=== PATIENT | female | born 1950 | race Caucasian/White ===

== ENCOUNTER 2017-02-18 10:12 | Outpatient (CLI) | payer MEDICAID, OTHER | END 2017-02-18 10:13 | disposition home or self-care (01) | DX: K76.0 Fatty (change of) liver, not elsewhere classified (principal); I10 Essential (primary) hypertension; E11.9 Type 2 diabetes mellitus without complications ==

== ENCOUNTER 2017-12-12 08:00 | Outpatient (CLI) | payer SELFPAY ==
[2017-12-12 19:23] LABS: HB2 TOTAL 15.3 g/dL; HEMOGLOBIN A1C 1.14 g/dL
[2017-12-12 19:29] LABS: ALBUMIN 3.8 g/dL (3.2-5.5); ALBUMIN/GLOBULIN RATIO 1.2 (1.0-2.2); BILIRUBIN,TOTAL 0.6 mg/dL (0.2-1.0); CREATININE 0.7 mg/dL (0.4-1.0)
== END 2017-12-12 08:01 | disposition home or self-care (01) ==
LOC: LAB.WCP 08:00
PROVIDERS: ATTEND Family Medicine
DX: E11.40 Type 2 diabetes mellitus with diabetic neuropathy, unspecified (principal); I10 Essential (primary) hypertension; M17.0 Bilateral primary osteoarthritis of knee
CPT/HCPCS: 36415; 80053; 83036

== ENCOUNTER 2018-03-18 08:00 | Outpatient (CLI) | payer MEDICARE ==
[2018-03-18 19:27] LABS: ALBUMIN 3.9 g/dL (3.2-5.5); ALBUMIN/GLOBULIN RATIO 1.2 (1.0-2.2); BILIRUBIN,TOTAL 0.7 mg/dL (0.2-1.0); CALCIUM 9.1 mg/dL (8.5-10.3); CREATININE 0.8 mg/dL (0.4-1.0); TOTAL PROTEIN 7.1 g/dL (6.7-8.2)
[2018-03-18 20:02] LABS: HB2 TOTAL 15.2 g/dL; HEMOGLOBIN A1C 0.89 g/dL; HEMOGLOBIN A1C % 7.5 % (4.6-6.2)
== END 2018-03-18 08:01 | disposition home or self-care (01) ==
LOC: LAB.WCP 08:00
PROVIDERS: ATTEND Family Medicine
DX: E11.9 Type 2 diabetes mellitus without complications (principal)
CPT/HCPCS: 36415; 80053; 83036

== ENCOUNTER → 2018-08-13 | Outpatient (CLI) | payer MEDICARE ==
[2018-08-13 19:18] LABS: BASOPHILS % (AUTO) 0.8 %; EOSINOPHILS # (AUTO) 0.1 10^3/uL (0.0-0.7); HGB - HEMOGLOBIN 13.9 g/dL (12.0-16.0); LYMPHOCYTES # (AUTO) 1.8 10^3/uL (1.5-3.5); LYMPHOCYTES % (AUTO) 28.1 %; MEAN CORPUSCULAR HEMOGLOBIN 31.3 pg (27.0-31.0); MEAN CORPUSCULAR VOLUME 92.2 fL (81.0-99.0); MEAN PLATELET VOLUME 8.6 fL (7.9-10.8); MONOCYTES # (AUTO) 0.3 10^3/uL (0.0-1.0); MONOCYTES % (AUTO) 4.5 %; NEUTROPHILS # (AUTO) 4.2 10^3/uL (1.5-6.6); NEUTROPHILS % (AUTO) 64.6 %; PLT - PLATELET COUNT 291 10^3/uL (130-450); RED BLOOD COUNT 4.42 10^6/uL (4.20-5.40); RED CELL DISTRIBUTION WIDTH 13.1 % (12.0-15.0); WHITE BLOOD COUNT 6.5 x10^3/uL (4.8-10.8)
[2018-08-13 19:25] LABS: ALBUMIN 3.7 g/dL (3.2-5.5); ALBUMIN/GLOBULIN RATIO 1.1 (1.0-2.2); BILIRUBIN,TOTAL 0.6 mg/dL (0.2-1.0); CALCIUM 8.6 mg/dL (8.5-10.3); CREATININE 0.7 mg/dL (0.4-1.0); TOTAL PROTEIN 7.2 g/dL (6.7-8.2)
[2018-08-13 19:30] LABS: PT - PROTHROMBIN TIME 11.2 secs (9.9-12.6)
== END ==
LOC: LAB.WCP 14:42
PROVIDERS: ATTEND Student in an Organized Health Care Education/Training Program
DX: K76.0 Fatty (change of) liver, not elsewhere classified (principal)
CPT/HCPCS: 36415; 80053; 85025; 85610; 85730

== ENCOUNTER 2018-09-13 09:26 | Outpatient (CLI) | payer MEDICARE ==
--- NOTE | 2018-09-13 20:36 | Ultrasound Report ---
Reason: ELEVATED LIVER ENZYMES-INTERMITTENT, FATTY LIVER D Procedure Date: 09/13/2018 Accession Number: [id number] / [id number] Procedure: US - Abdomen Limited CPT Code: FULL RESULT: EXAM: ABDOMEN ULTRASOUND LIMITED, RIGHT UPPER QUADRANT EXAM DATE: 09/13/2018 09:31 AM. CLINICAL HISTORY: Elevated liver enzymes-intermittent, fatty liver. COMPARISON: None. TECHNIQUE: Real-time scanning was performed with static images obtained. FINDINGS: Liver: The liver is diffusely echogenic in appearance suggesting fibrofatty infiltration. No suspicious lesions or masses are identified. The liver is mildly enlarged measuring 18.9 cm. Main portal vein flow: Hepatopetal. Gallbladder: Surgically absent. Biliary System: CBD measures 7 mm. No intrahepatic or extrahepatic ductal dilatation. Other: None. IMPRESSION: 1. Mild hepatomegaly and fatty change of the liver is seen. 2. Status post cholecystectomy. No biliary dilation. RADIA
== END 2018-09-13 09:27 | disposition home or self-care (01) ==
LOC: DI 09:26
PROVIDERS: ATTEND Physician Assistant
DX: K76.0 Fatty (change of) liver, not elsewhere classified (principal); R74.8 Abnormal levels of other serum enzymes; Z90.49 Acquired absence of other specified parts of digestive tract
CPT/HCPCS: 76705

== ENCOUNTER 2018-10-11 08:57 | Outpatient (CLI) | payer MEDICARE ==
[2018-10-11 09:37] LABS: ALBUMIN 3.8 g/dL (3.2-5.5); ALBUMIN/GLOBULIN RATIO 1.2 (1.0-2.2); BILIRUBIN,TOTAL 0.6 mg/dL (0.2-1.0); CREATININE 0.6 mg/dL (0.4-1.0); TOTAL PROTEIN 6.9 g/dL (6.7-8.2)
[2018-10-11 09:45] LABS: HB2 TOTAL 15.1 g/dL; HEMOGLOBIN A1C 0.97 g/dL
== END 2018-10-11 08:58 | disposition home or self-care (01) ==
LOC: LAB 08:57
PROVIDERS: ATTEND Family Medicine
DX: B35.1 Tinea unguium (principal); E11.40 Type 2 diabetes mellitus with diabetic neuropathy, unspecified; I10 Essential (primary) hypertension
CPT/HCPCS: 36415; 80053; 83036

== ENCOUNTER 2018-12-24 11:32 | Outpatient (CLI) | payer MEDICARE ==
[2018-12-24 19:09] LABS: ALBUMIN 3.8 g/dL (3.2-5.5); ALBUMIN/GLOBULIN RATIO 1.2 (1.0-2.2); BILIRUBIN,TOTAL 0.8 mg/dL (0.2-1.0); CALCIUM 9.1 mg/dL (8.5-10.3); CREATININE 0.6 mg/dL (0.4-1.0); TOTAL PROTEIN 6.9 g/dL (6.7-8.2)
[2018-12-24 19:16] LABS: HB2 TOTAL 15.2 g/dL; HEMOGLOBIN A1C 1.03 g/dL; HEMOGLOBIN A1C % 8.4 % (4.6-6.2)
== END 2018-12-24 11:33 | disposition home or self-care (01) ==
LOC: LAB.WCP 11:32
PROVIDERS: ATTEND Family Medicine
DX: E11.9 Type 2 diabetes mellitus without complications (principal); B35.1 Tinea unguium; I10 Essential (primary) hypertension
CPT/HCPCS: 36415; 80053; 83036

== ENCOUNTER 2019-04-13 10:01 | Outpatient (CLI) | payer MEDICARE ==
[2019-04-13 12:29] LABS: BASOPHILS # (AUTO) 0.1 10^3/uL (0.0-0.1); BASOPHILS % (AUTO) 0.9 %; EOSINOPHILS # (AUTO) 0.2 10^3/uL (0.0-0.7); EOSINOPHILS % (AUTO) 3.2 %; HGB - HEMOGLOBIN 13.7 g/dL (12.0-16.0); LYMPHOCYTES # (AUTO) 2.1 10^3/uL (1.5-3.5); LYMPHOCYTES % (AUTO) 31.6 %; MEAN CORPUSCULAR HGB CONC 33.9 g/dL (32.0-36.0); MEAN CORPUSCULAR VOLUME 94.4 fL (81.0-99.0); MEAN PLATELET VOLUME 10.1 fL (7.9-10.8); MONOCYTES # (AUTO) 0.4 10^3/uL (0.0-1.0); MONOCYTES % (AUTO) 6.3 %; NEUTROPHILS # (AUTO) 3.8 10^3/uL (1.5-6.6); NEUTROPHILS % (AUTO) 57.8 %; PLT - PLATELET COUNT 300 10^3/uL (130-450); RED BLOOD COUNT 4.28 10^6/uL (4.20-5.40); RED CELL DISTRIBUTION WIDTH 12.3 % (12.0-15.0); WHITE BLOOD COUNT 6.6 x10^3/uL (4.8-10.8)
[2019-04-13 12:41] LABS: HEMOGLOBIN A1C 0.94 g/dL; HEMOGLOBIN A1C % 7.9 % (4.6-6.2)
== END 2019-04-13 10:02 | disposition home or self-care (01) ==
LOC: LAB.WCP 10:01
PROVIDERS: ATTEND Family Medicine
DX: B35.1 Tinea unguium (principal); E11.9 Type 2 diabetes mellitus without complications; I10 Essential (primary) hypertension
CPT/HCPCS: 36415; 83036; 85025

== ENCOUNTER 2019-04-18 16:56 | Outpatient (CLI) | payer MEDICARE ==
--- NOTE | 2019-04-20 01:03 | XRAY Report ---
Reason: FOOT PAIN,LEFT Procedure Date: 04/18/2019 Accession Number: [id number] / [id number] Procedure: XR - Foot 3 View LT CPT Code: FULL RESULT: EXAM: LEFT FOOT RADIOGRAPHY EXAM DATE: 04/18/2019 05:22 PM. CLINICAL HISTORY: FOOT PAIN, LEFT. COMPARISON: None. TECHNIQUE: 3 views. Weightbearing. FINDINGS: Bones: Normal. No fractures or bone lesions. Joints: No subluxation. Fourth PIP joint space narrowing. Soft Tissues: Normal. No soft tissue swelling. Posterior calcaneal bone spur. Bone spurs off the base of the fifth metatarsal. IMPRESSION: No acute findings. See above. RADIA
== END 2019-04-18 16:57 | disposition home or self-care (01) ==
LOC: DI 16:56
PROVIDERS: ATTEND Family Medicine
DX: M79.672 Pain in left foot (principal)

== ENCOUNTER 2019-05-12 15:09 | Outpatient (CLI) | payer MEDICARE ==
--- NOTE | 2019-05-14 10:33 | XRAY Report ---
Reason: PAIN EDEMA INCREASE SINCE 05-11-19 Procedure Date: 05/12/2019 Accession Number: [id number] / [id number] Procedure: XR - Foot 3 View LT CPT Code: FULL RESULT: EXAM: LEFT FOOT RADIOGRAPHY EXAM DATE: 05/12/2019 03:35 PM. CLINICAL HISTORY: Pain. Edema increase since 05-11-19. COMPARISON: FOOT 3 VIEW LT 04/18/2019 5:01 PM. TECHNIQUE: 3 views. FINDINGS: Bones: No acute fracture or bony lesion. Bones appear demineralized. Mild degenerative spurring. Small posterior and plantar calcaneal spurs. Enthesophyte/osteophyte along the proximal left fifth metatarsal, unchanged. Joints: Mild degenerative changes of the left first MTP joint and DIP and PIP joints of the second through fifth digits. Mild degenerative changes of the left midfoot. No dislocation. Soft Tissues: Soft tissue edema. No radiopaque foreign bodies. IMPRESSION: 1. No acute osseous abnormalities. 2. Mild degenerative changes. 3. Soft tissue edema. RADIA
== END 2019-05-12 15:10 | disposition home or self-care (01) ==
LOC: DI 15:09
PROVIDERS: ATTEND Podiatrist
DX: M19.072 Primary osteoarthritis, left ankle and foot (principal)

== ENCOUNTER 2019-05-14 09:59 | Outpatient (CLI) | payer MEDICARE ==
[2019-05-14 13:18] LABS: ALBUMIN/GLOBULIN RATIO 1.3 (1.0-2.2); BILIRUBIN,TOTAL 0.8 mg/dL (0.2-1.0); CALCIUM 9.4 mg/dL (8.5-10.3); CREATININE 0.8 mg/dL (0.4-1.0); TOTAL PROTEIN 7.1 g/dL (6.7-8.2); URIC ACID 5.7 mg/dL (2.6-7.2)
== END 2019-05-14 23:59 | disposition home or self-care (01) ==
LOC: LAB.WCP 09:59
PROVIDERS: ATTEND Family Medicine
DX: M79.672 Pain in left foot (principal); E11.9 Type 2 diabetes mellitus without complications; I10 Essential (primary) hypertension
CPT/HCPCS: 36415; 80053; 84550

== ENCOUNTER 2019-07-07 13:52 | Outpatient (CLI) | payer MEDICARE ==
--- NOTE | 2019-07-07 15:45 | XRAY Report ---
Reason: FRACTURE L CALCANEUS Procedure Date: 07/07/2019 Accession Number: [id number] / [id number] Procedure: XR - Foot 3 View LT CPT Code: FULL RESULT: EXAM: LEFT FOOT RADIOGRAPHY EXAM DATE: 07/07/2019 02:13 PM. CLINICAL HISTORY: Fracture left calcaneus. COMPARISON: FOOT 3 VIEW LT 05/12/2019 3:18 PM. TECHNIQUE: 3 views. FINDINGS: Bones: Bohler' s angle appears preserved with no fracture of the calcaneus directly visualized. Positioning of the lateral radiograph is somewhat suboptimal, limits the evaluation. No fractures or bone lesions. Joints: Normal. No subluxations. Soft Tissues: Normal. No soft tissue swelling. IMPRESSION: Limited evaluation with no definite calcaneus fracture seen. RADIA
== END 2019-07-07 13:53 | disposition home or self-care (01) ==
LOC: DI 13:52
PROVIDERS: ATTEND Podiatrist
DX: S92.002A Unspecified fracture of left calcaneus, initial encounter for closed fracture (principal)

== ENCOUNTER 2019-07-13 14:58 | Outpatient (CLI) | payer MEDICARE ==
--- NOTE | 2019-07-13 16:02 | XRAY Report ---
Reason: FRACTURE L CALCANEUS Procedure Date: 07/13/2019 Accession Number: [id number] / [id number] Procedure: XR - Foot 3 View LT CPT Code: FULL RESULT: EXAM: LEFT FOOT RADIOGRAPHY EXAM DATE: 07/13/2019 03:19 PM. CLINICAL HISTORY: Left foot pain. Follow-up possible calcaneal fracture. COMPARISON: FOOT 3 VIEW LT 07/07/2019 2:05 PM. TECHNIQUE: 3 views. FINDINGS: Bones: Hammertoe deformities of digits 1 through 5. No fractures or bone lesions. Special attention was given to the calcaneus which is normal. Joints: Normal. No subluxations. Soft Tissues: Normal. No soft tissue swelling. IMPRESSION: No acute abnormality. Negative for fracture. RADIA
== END 2019-07-13 14:59 | disposition home or self-care (01) ==
LOC: DI 14:58
PROVIDERS: ATTEND Podiatrist
DX: M79.672 Pain in left foot (principal)

== ENCOUNTER 2019-08-21 09:32 | Outpatient (CLI) | payer MEDICARE ==
[2019-08-21 14:21] LABS: ALBUMIN 3.9 g/dL (3.2-5.5); ALBUMIN/GLOBULIN RATIO 1.3 (1.0-2.2); BILIRUBIN,TOTAL 0.4 mg/dL (0.2-1.0); CALCIUM 9.4 mg/dL (8.5-10.3); CREATININE 0.8 mg/dL (0.4-1.0); TOTAL PROTEIN 6.9 g/dL (6.7-8.2)
[2019-08-21 15:00] LABS: HB2 TOTAL 13.3 g/dL; HEMOGLOBIN A1C 0.79 g/dL; HEMOGLOBIN A1C % 7.6 % (4.6-6.2)
== END 2019-08-21 23:59 | disposition home or self-care (01) ==
LOC: LAB.WCP 09:32
PROVIDERS: ATTEND Family Medicine
DX: E11.9 Type 2 diabetes mellitus without complications (principal)
CPT/HCPCS: 36415; 80053; 83036

== ENCOUNTER 2019-09-18 12:09 | Outpatient (CLI) | payer MEDICARE ==
--- NOTE | 2019-09-21 09:09 | Mammography Report ---
Reason: ANNUAL SCREENING Procedure Date: 09/18/2019 Accession Number: [id number] / [id number] Procedure: RUFINA - Screening Mammo Dig Bilat CPT Code: Final Report FULL RESULT: EXAM: Screening Mammo Dig Bilat DATE: 09/18/2019 12:35 PM CLINICAL HISTORY: Screening encounter. History of early menses. TECHNIQUE: (B) - Bilateral CC and MLO views were obtained. COMPARISON: 02/10/2014. PARENCHYMAL PATTERN: (A) - The breast(s) demonstrate(s) scattered fibroglandular densities. FINDINGS: There are scattered coarse calcifications, typically benign. There are no suspicious masses, calcifications, or areas of distortion. IMPRESSION: Benign findings. BI-RADS category 2. RECOMMENDATION: (ANNUAL) - Recommend routine annual screening mammography. BI-RADS CATEGORY: (2) - Benign Findings. STANDARD QUALIFYING STATEMENTS: 1. This examination was not reviewed with the aid of Computer-Aided Detection (CAD). 2. A negative or benign imaging report should not preclude biopsy if clinically suspicious findings are present. 3. Dense breasts may obscure an underlying neoplasm. 4. This examination was reviewed without the aid of 3D breast imaging (tomosynthesis).
== END 2019-09-18 12:10 | disposition home or self-care (01) ==
LOC: DI 12:09
PROVIDERS: ATTEND Family Medicine
DX: Z12.31 Encounter for screening mammogram for malignant neoplasm of breast (principal)
CPT/HCPCS: 77067

== ENCOUNTER 2019-09-18 12:10 | Outpatient (CLI) | payer MEDICARE ==
--- NOTE | 2019-09-21 08:35 | DEXA Report ---
Reason: ASYMPTOMATIC MENOPAUSAL STATUS Procedure Date: 09/18/2019 Accession Number: [id number] / [id number] Procedure: DEX - Dexa Spine and/or Hip CPT Code: Final Report FULL RESULT: EXAM: Dexa Spine and/or Hip DATE: 09/18/2019 12:54 PM CLINICAL HISTORY: ASYMPTOMATIC MENOPAUSAL STATUS TECHNIQUE: Dual energy x-ray absorptiometry (DXA) was performed on a OmniForce System. Regions measured are the AP Spine, femoral neck, and if needed forearm. COMPARISON: None. In accordance with the International Society for Clinical Densitometry (ISCD) guidelines, data from previous exams may be reanalyzed using current recommendations and techniques. This is done to allow a more accurate basis for comparison with the current study. FINDINGS: The data for the lumbar spine is as follows: BMD (g/cm/cm) T-SCORE Z-SCORE REGION L1 1.245 1.0 1.4 L2 1.284 0.7 1.2 L3 1.483 2.4 2.8 L4 1.751 4.6 5.0 TOTAL 1.447 2.2 2.7 NOTE: All evaluable vertebrae are used for classification The data for the hip is as follows: BMD (g/cm/cm) T-SCORE Z-SCORE REGION Neck 1.039 0.0 0.8 TOTAL 1.091 0.7 1.1 NOTE: The femoral neck or total proximal femur, whichever is lowest, is used for classification. IMPRESSION: THE WHO CLASSIFICATION BASED ON THE INTERNATIONAL REFERENCE STANDARD IS NORMAL. THE FRACTURE RISK IS NOT INCREASED. RECOMMENDATION: Patients with diagnosis of osteoporosis or osteopenia should have regular bone mineral density assessment. For those eligible for Medicare, routine testing is allowed once every 2 years. Testing frequency can be increased for patients who have rapidly progressing disease or for those who are receiving medical therapy to restore bone mass. COMMENT: World Health Organization (WHO) definitions for osteoporosis and osteopenia: NORMAL BMD: T-score at -1.0 or higher, fracture risk is low OSTEOPENIA BMD: T-score between -1.0 and -2.5, fracture risk is increased. OSTEOPOROSIS BMD: T-score at -2.5 or lower, fracture risk is high. National Osteoporosis Foundation recommends: 1. Obtain adequate dietary calcium (at least 1200 mg per day) and vitamin D (400-800 international units per day). 2. Participate, as appropriate, in regular weightbearing and muscle-strengthening exercise. 3. Avoid tobacco use and reduce alcohol and caffeine intake. 4. For more detailed information see the website at www.NOF.org.
== END 2019-09-18 12:11 | disposition home or self-care (01) ==
LOC: DI 12:10
PROVIDERS: ATTEND Family Medicine
DX: Z78.0 Asymptomatic menopausal state (principal)
CPT/HCPCS: 77080

== ENCOUNTER 2019-12-28 15:55 | Outpatient (CLI) | payer MEDICARE | END 2019-12-28 15:56 | disposition home or self-care (01) | LOC: COV 15:55 | PROVIDERS: ATTEND Family Medicine | DX: R50.9 Fever, unspecified (principal); R05 Cough | CPT/HCPCS: 81599; U0002 ==

== ENCOUNTER 2020-05-20 08:00 | Outpatient (CLI) | payer MEDICARE | END 2020-05-20 23:59 | disposition home or self-care (01) | LOC: LAB.R 08:00 | PROVIDERS: ATTEND Podiatrist | DX: E11.622 Type 2 diabetes mellitus with other skin ulcer (principal) | CPT/HCPCS: 87070; 87077; 87181; 87205 ==

== ENCOUNTER 2020-05-27 14:58 | Outpatient (CLI) | payer MEDICARE ==
--- NOTE | 2020-05-27 16:13 | XRAY Report ---
PROCEDURE: Foot 3 View LT INDICATIONS: DIABETIC PRESSURE ULCER LATERAL,PLANTAR L FT TECHNIQUE: 3 views of the foot were acquired. COMPARISON: 3 views of the foot dated 07/13/2019. FINDINGS: Bones: No fractures or dislocations. No suspicious bony lesions. Soft tissues: No tibiotalar joint effusion. Achilles tendon appears normal. IMPRESSION: No suspicious bony abnormalities to suggest acute osteomyelitis; however plain film is less sensitive in the acute phases of osteomyelitis. If there is high clinical suspicion for osteomyelitis, MRI of the foot with and without contrast or nuclear medicine bone scan may be helpful to further characteri ze findings. Reviewed by: Rhianna Amato MD on 05/27/2020 4:12 PM PDT Approved by: Rhianna Amato MD on 05/27/2020 4:12 PM PDT Station ID: [id number]
== END 2020-05-27 14:59 | disposition home or self-care (01) ==
LOC: DI 14:58
PROVIDERS: ATTEND Podiatrist
DX: E11.621 Type 2 diabetes mellitus with foot ulcer (principal); L89.899 Pressure ulcer of other site, unspecified stage

== ENCOUNTER 2020-11-14 08:00 | Outpatient (CLI) | payer MEDICARE ==
[2020-11-14 18:05] LABS: CALCIUM 9.3 mg/dL (8.5-10.3); CREATININE 0.8 mg/dL (0.4-1.0)
[2020-11-14 18:16] LABS: CREATININE,URINE 129.1 mg/dL; MICROALBUM/CREATININE RATIO,UR 12.4 ug/mg (<30.0); MICROALBUMIN,URINE 1.6 mg/dL (0-300.0)
[2020-11-14 20:04] LABS: HEMOGLOBIN A1c% 9.5 % (4.27-6.07)
== END 2020-11-14 23:59 | disposition home or self-care (01) ==
LOC: LAB.WCP 08:00
PROVIDERS: ATTEND Family Medicine
DX: E11.9 Type 2 diabetes mellitus without complications (principal); I10 Essential (primary) hypertension
CPT/HCPCS: 36415; 80048; 82043; 82570; 83036

== ENCOUNTER 2021-01-26 17:39 | Outpatient (CLI) | payer MEDICARE ==
--- NOTE | 2021-01-26 18:38 | XRAY Report ---
PROCEDURE: Hip w/Pelvis 1V RT INDICATIONS: RIGHT HIP PAIN TECHNIQUE: AP pelvis with lateral view(s) of the right hip(s). COMPARISON: None. FINDINGS: Bones: No fractures or dislocations. Right worse than left bilateral hip joint osteoarthritis is see n. Pelvic ring appears intact. No suspicious bony lesions. Degenerative disc disease in visualized lower lumbar spine is also seen. Soft tissues: The visualized bowel gas pattern is normal. No suspicious soft tissue calcifications. IMPRESSION: Right worse than left bilateral hip joint osteoarthritis. No pelvic or hip fracture. No e vidence of avascular necrosis. Reviewed by: Shemar Germain MD on 01/26/2021 5:36 PM AKYOVANY Approved by: Shemar Germain MD on 01/26/2021 5:36 PM AKDT Station ID: [id number]
== END 2021-01-26 17:40 | disposition home or self-care (01) ==
LOC: DI.N 17:39
PROVIDERS: ATTEND Physician Assistant Medical
DX: M16.0 Bilateral primary osteoarthritis of hip (principal)

== ENCOUNTER 2021-03-17 08:00 | Outpatient (CLI) | payer MEDICARE ==
[2021-03-17 12:41] LABS: ESTIMATED AVERAGE GLUCOSE 177 mg/dL (70-100); HEMOGLOBIN A1c% 7.8 % (4.27-6.07)
[2021-03-17 12:54] LABS: ALBUMIN/GLOBULIN RATIO 1.2 (1.0-2.2); ALKALINE PHOSPHATASE 92 IU/L (42-121); ALT ALANINE AMINOTRANSFERASE 36 IU/L (10-60); AST ASPARTATE AMINOTRANSFERASE 20 IU/L (10-42); BILIRUBIN,TOTAL 0.6 mg/dL (0.2-1.0); BUN - BLOOD UREA NITROGEN 32 mg/dL (6-20); CALCIUM 9.6 mg/dL (8.5-10.3); CARBON DIOXIDE - CO2 26 mmol/L (21-32); CHLORIDE 104 mmol/L (101-111); CHOL/HDL RATIO 4.7 (<4.4); CHOLESTEROL 203 mg/dL; CREATININE 0.9 mg/dL (0.4-1.0); GFR - MDRD 62 (>89); GLUCOSE 175 mg/dL (70-100); HDL CHOLESTEROL 43 mg/dL; LDL CHOLESTEROL,CALCULATED 134 mg/dL; LDL/HDL RATIO 3.1 (<4.4); POTASSIUM 4.7 mmol/L (3.5-5.0); SODIUM 141 mmol/L (135-145); TOTAL PROTEIN 7.3 g/dL (6.7-8.2); TRIGLYCERIDES 129 mg/dL; VLDL CHOLESTEROL 26 mg/dL
== END 2021-03-17 08:01 | disposition home or self-care (01) ==
LOC: LAB.WCP 08:00
PROVIDERS: ATTEND Physician Assistant Medical
DX: E11.9 Type 2 diabetes mellitus without complications (principal)
CPT/HCPCS: 36415; 80053; 80061; 83036; 83721

== ENCOUNTER 2021-04-08 15:56 | Outpatient (CLI) | payer MEDICARE | END 2021-04-08 15:57 | disposition short-term general hospital (02) | LOC: EMS 15:56 | DX: R06.02 Shortness of breath (principal); R53.1 Weakness; R11.0 Nausea; R51.9 Headache, unspecified | CPT/HCPCS: A0425; A0429 ==

== ENCOUNTER 2021-06-20 09:43 | Outpatient (CLI) | payer MEDICARE ==
[2021-06-20 12:37] LABS: BUN - BLOOD UREA NITROGEN 41 mg/dL (6-20); CALCIUM 9.4 mg/dL (8.5-10.3); CARBON DIOXIDE - CO2 25 mmol/L (21-32); CHLORIDE 105 mmol/L (101-111); CHOL/HDL RATIO 3.5 (<4.4); CHOLESTEROL 152 mg/dL; CREATININE 0.9 mg/dL (0.4-1.0); GFR - MDRD 62 (>89); GLUCOSE 186 mg/dL (70-100); HDL CHOLESTEROL 43 mg/dL; LDL CHOLESTEROL,CALCULATED 82 mg/dL; LDL/HDL RATIO 1.9 (<4.4); POTASSIUM 4.5 mmol/L (3.5-5.0); SODIUM 141 mmol/L (135-145); TRIGLYCERIDES 137 mg/dL; VLDL CHOLESTEROL 27 mg/dL
[2021-06-20 13:21] LABS: ESTIMATED AVERAGE GLUCOSE 189 mg/dL (70-100); HEMOGLOBIN A1c% 8.2 % (4.27-6.07)
== END 2021-06-20 23:59 | disposition home or self-care (01) ==
LOC: LAB.WCP 09:43
PROVIDERS: ATTEND Physician Assistant Medical
DX: E11.9 Type 2 diabetes mellitus without complications (principal)
CPT/HCPCS: 36415; 80048; 80061; 83036; 83721

== ENCOUNTER 2021-10-02 09:37 | Outpatient (CLI) | payer MEDICARE | END 2021-10-02 09:38 | disposition home or self-care (01) | LOC: LAB.N 09:37 | PROVIDERS: ATTEND Surgery | DX: Z01.812 Encounter for preprocedural laboratory examination (principal); Z12.11 Encounter for screening for malignant neoplasm of colon; E11.9 Type 2 diabetes mellitus without complications; E66.9 Obesity, unspecified; Z79.4 Long term (current) use of insulin; Z20.822 Contact with and (suspected) exposure to COVID-19 ==

== ENCOUNTER 2021-10-03 07:22 | Day surgery (SDC) | payer MEDICARE ==
[2021-10-03] MEDS ORDERED: PROPOFOL 500 MG/50 ML 500 MG/50 ML VIAL ONE (07:54)
[2021-10-03] MEDS ORDERED: MIDAZOLAM 2 MG/2 ML VIAL ONE (07:54)
[2021-10-03] MEDS ORDERED: LACTATED RINGERS 1,000 ML IV ONE ×2 (07:56→11:30)
--- NOTE | 2021-10-03 08:05 | ANESTHESIA ---
Pre-Anesthesia VS, & Labs - Diagnosis screening - Procedure colonoscopy w biopsies Vital Signs: Temp Pulse Resp BP Pulse Ox 36.3 C L 99 16 146/66 H 96 10/03/21 07:30 10/03/21 07:30 10/03/21 07:30 10/03/21 07:30 10/03/21 07:30 Height: 5 ft 8 in Weight (kg): 110 kg Body Mass Index: 36.8 BMI Classification: Obese - NPO >8 hours - Is Patient ?: No - Lab Results Current Lab Results: Laboratory Tests 10/03/21 07:45: POC Whole Bld Glucose 256 H Lab results reviewed: Yes Home Medications and Allergies Home Medications: Ambulatory Orders Insulin Degludec [Tresiba] 28 unit SUBQ DAILY 09/28/21 Lisinopril/Hydrochlorothiazide [Zestoretic 20-12.5 mg Tablet] 1 each PO DAILY 09/28/21 Ibuprofen 800 mg PO BID 08/02/15 glipiZIDE [Glucotrol] 10 mg PO BID 08/02/15 Lovastatin 20 mg PO QPM 02/28/18 Metformin HCl [Metformin HCl ER] 500 mg PO BID 02/28/18 Insulin Aspart [NovoLOG] 10 - 15 unit SUBQ TIDWM 03/29/21 Insulin Degludec [Tresiba] 28 unit SUBQ DAILY 09/28/21 Lisinopril/Hydrochlorothiazide [Zestoretic 20-12.5 mg Tablet] 1 each PO DAILY 09/28/21 Allergies/Adverse Reactions: Allergies Allergy/AdvReac Type Severity Reaction Status Date / Time amoxicillin [From Augmentin] Allergy Itching Verified 09/28/21 12:04 clavulanic acid Allergy Itching Verified 09/28/21 12:04 [From Augmentin] codeine Allergy Itching Verified 08/02/15 15:24 Anes History & Medical History - Anesthetic History Anesthesia Complications: reports: No previous complications Family history of Anesthesia Complications: Denies Family history of Malignant Hyperthermia: Denies - Medical History Cardiovascular: reports: Hypertension, High cholesterol Pulmonary: reports: None Gastrointestinal: reports: None Urinary: reports: Frequency Neuro: reports: Peripheral neuropathy Musculoskeletal: reports: Osteoarthritis, Other Endocrine/Autoimmune: reports: Type 2 diabetes Skin: reports: Rosacea Smoking Status: Former smoker - Surgical History General: reports: Cholecystectomy, Appendectomy Eyes Ears Nose Throat (EENT): reports: Cataracts Gynecologic: reports: Hysterectomy, Oophrectomy Orthopedic: reports: Knee replacement Exam General: Alert, Oriented x3, Cooperative Dental: WNL Mouth Openin Fingerbreadth Neck Mobility: Normal Mallampati classification: II Thyromental Distance: 4-6 cm Respiratory: Lungs clear, Normal breath sounds, No respiratory distress Cardiovascular: Regular rate Abdomen: Normal bowel sounds Neurological: Normal speech Mental/Cognitive Status: Alert/Oriented X3, Normal for patient Cognitive Status: Within normal limits Plan Anesthesia Type: Total IV Consent for Procedure(s) Verified and Reviewed: Yes Code Status: Attempt Resuscitation ASA classification: 3-Severe systemic disease Is this case an emergency?: No
[2021-10-03] MEDS ORDERED: LACTATED RINGERS 500 ML IV ONE (09:00)
--- NOTE | 2021-10-03 09:41 | ANESTHESIA POST OP EVALUATION ---
Anesthesia Post Eval - Post Anesthesia Eval Vitals: Last Vital Signs Temp 36.6 C 10/03/21 09:30 Pulse 69 10/03/21 09:30 Resp 14 10/03/21 09:30 BP 119/38 L 10/03/21 09:30 Pulse Ox 96 10/03/21 09:30 CV Function Including HR & BP: Stable Pain Control: Satisfactory Nausea & Vomiting: Negative Mental Status: Baseline Respiratory Status: Airway Patent Hydration Status: Satisfactory Anesthesia Complications: None
[2021-10-03] MEDS ORDERED: IOPAMIDOL-300 100 ML VIAL ONE (10:20)
[2021-10-03] MEDS ORDERED: IOPAMIDOL-300 50 ML VIAL ONE (10:20)
[2021-10-03 10:23] LABS: CREATININE 0.9 mg/dL (0.4-1.0)
--- NOTE | 2021-10-03 13:08 | CT Report ---
PROCEDURE: Abdomen/Pelvis W INDICATIONS: Failed colonoscopy CONTRAST: IV CONTRAST: Isovue 300 ml: 100 PO CONTRAST: Isovue 300 ml100 TECHNIQUE: After the administration of oral and intravenous contrast, 5 mm thick sections acquired from the diap hragms to the symphysis. 5 mm thick coronal and sagittal reformats were acquired. For radiation dos e reduction, the following was used: automated exposure control, adjustment of mA and/or kV accordin g to patient size. COMPARISON: None. FINDINGS: Inferior chest: No focal consolidation, pleural effusion, or pneumothorax. No cardiomegaly or perica rdial effusion. Gallbladder: Cholecystectomy. Biliary tree: No intrahepatic bile duct dilatation. Liver: Decreased attenuation liver, compatible hepatic steatosis. Spleen: Normal enhancement, size and morphology is seen. Pancreas: No contour deforming mass or inflammatory change. Adrenals: Minimal nodularity of the medial limb, left adrenal gland. The right adrenal gland is unrem arkable. Kidneys/ureters: Symmetric enhancement without evidence of obstructive uropathy. Nonobstructive right renal calculus measuring up to 9.1 mm. A few scattered hypoattenuating lesions are seen, measuring u p to 2.2 cm in the left upper pole. Vasculature: No evidence of aneurysm or other significant vascular pathology. Lymphatic system: No pathologic enlargement by size criteria. GI/mesentery: No evidence of intestinal obstruction. Colonic diverticulosis. The appendix is not well seen. Peritoneum/Retroperitoneum: No free intraperitoneal gas or large collection. Urinary bladder: The urinary bladder is distended with a smooth thin wall. Pelvic organs: The uterus appears surgically absent. Bones/soft tissues: No significant abnormality. Multifocal degenerative change. IMPRESSION: 1.Nonobstructive right calculus. 2.Hepatic steatosis. 3.Colonic diverticulosis. Reviewed by: Karl Camp MD on 10/03/2021 1:06 PM PST Approved by: Karl Camp MD on 10/03/2021 1:06 PM PST Station ID: [id number]
[2021-10-03 13:16] VITALS: BP 145/53
[2021-10-03] MEDS ORDERED: IOPAMIDOL-300 50 ML VIAL PO ONE (13:32)
[2021-10-03] MEDS ORDERED: IOPAMIDOL-300 100 ML VIAL IVP ONE (13:33)
== END 2021-10-03 07:23 | disposition home or self-care (01) ==
LOC: SDS 07:22
PROVIDERS: ATTEND Surgery
DX: Z12.11 Encounter for screening for malignant neoplasm of colon (principal); K57.30 Diverticulosis of large intestine without perforation or abscess without bleeding; K64.8 Other hemorrhoids; K64.4 Residual hemorrhoidal skin tags; I10 Essential (primary) hypertension; E11.42 Type 2 diabetes mellitus with diabetic polyneuropathy; E66.9 Obesity, unspecified; Z68.36 Body mass index [BMI] 36.0-36.9, adult; Z79.4 Long term (current) use of insulin; Z79.84 Long term (current) use of oral hypoglycemic drugs; Z79.899 Other long term (current) drug therapy
CPT/HCPCS: 36415; 74177; 82565; G0121; J7120; Q9967

== ENCOUNTER 2022-04-09 08:59 | Outpatient (CLI) | payer MEDICARE ==
[2022-04-09 12:12] LABS: ALBUMIN 3.7 g/dL (3.2-5.5); ALBUMIN/GLOBULIN RATIO 1.1 (1.0-2.2); BILIRUBIN,TOTAL 0.6 mg/dL (0.2-1.0); CALCIUM 9.3 mg/dL (8.5-10.3); CREATININE 0.9 mg/dL (0.4-1.0); POTASSIUM 4.2 mmol/L (3.5-5.0); TOTAL PROTEIN 7.1 g/dL (6.7-8.2)
[2022-04-09 12:19] LABS: ESTIMATED AVERAGE GLUCOSE 200 mg/dL (70-100); HEMOGLOBIN A1c% 8.6 % (4.27-6.07)
== END 2022-04-09 09:00 | disposition home or self-care (01) ==
LOC: LAB.N 08:59
PROVIDERS: ATTEND Physician Assistant Medical
DX: E11.9 Type 2 diabetes mellitus without complications (principal)
CPT/HCPCS: 36415; 80053; 83036

== ENCOUNTER 2022-07-11 10:35 | Outpatient (CLI) | payer MEDICARE ==
[2022-07-11 18:12] LABS: ALBUMIN 3.9 g/dL (3.2-5.5); ALBUMIN/GLOBULIN RATIO 1.1 (1.0-2.2); ALKALINE PHOSPHATASE 129 IU/L (42-121); ALT ALANINE AMINOTRANSFERASE 80 IU/L (10-60); AST ASPARTATE AMINOTRANSFERASE 43 IU/L (10-42); BILIRUBIN,TOTAL 0.6 mg/dL (0.2-1.0); BUN - BLOOD UREA NITROGEN 35 mg/dL (6-20); CALCIUM 9.2 mg/dL (8.5-10.3); CARBON DIOXIDE - CO2 25 mmol/L (21-32); CHLORIDE 104 mmol/L (101-111); CHOL/HDL RATIO 3.2 (<4.4); CHOLESTEROL 162 mg/dL; GFR - MDRD 55 (>89); GLUCOSE 137 mg/dL (70-100); HDL CHOLESTEROL 51 mg/dL; LDL CHOLESTEROL,CALCULATED 90 mg/dL; LDL/HDL RATIO 1.8 (<4.4); POTASSIUM 4.6 mmol/L (3.5-5.0); SODIUM 137 mmol/L (135-145); TOTAL PROTEIN 7.4 g/dL (6.7-8.2); TRIGLYCERIDES 103 mg/dL; VLDL CHOLESTEROL 21 mg/dL
[2022-07-11 20:56] LABS: ESTIMATED AVERAGE GLUCOSE 157 mg/dL (70-100); HEMOGLOBIN A1c% 7.1 % (4.27-6.07)
== END 2022-07-11 10:36 | disposition home or self-care (01) ==
LOC: LAB.N 10:35
PROVIDERS: ATTEND Physician Assistant Medical
DX: E11.9 Type 2 diabetes mellitus without complications (principal)
CPT/HCPCS: 36415; 80053; 80061; 83036; 83721

== ENCOUNTER 2022-08-21 13:23 | Outpatient (CLI) | payer MEDICARE ==
--- NOTE | 2022-08-22 16:24 | Mammography Report ---
BILATERAL DIGITAL SCREENING MAMMOGRAM 3D/2D: 08/21/2022 CLINICAL: Routine screening. Comparison is made to exams dated: 09/18/2019 mammogram and 02/10/2014 mammogram - [facility]. There are scattered areas of fibroglandular density in both breasts (category b / 25%-50% glandular t issue). There is a 7 mm irregular equal density asymmetry with a spiculated margin in the left breast anterio r depth central to the nipple seen on the craniocaudal view only. This is increased in size. No other significant masses, calcifications, or other findings are seen in either breast. IMPRESSION: INCOMPLETE: NEEDS ADDITIONAL IMAGING EVALUATION The 7 mm irregular equal density asymmetry in the left breast is indeterminate. Additional views wit h possible ultrasound are recommended. Based on the Tyrer Cuzick model (a risk assessment model) the patients lifetime risk is 4.3% and her 10 year risk is 2.7%. According to the ACR, ACS, and NCCN guidelines, an annual breast MRI exam lucille g with mammogram is recommended if the patients lifetime risk is 20% or greater. This exam was interpreted at Station ID: [id number]. NOTE: For mammograms, a report in lay terms will be sent to the patient. Approximately 15% of breast malignancies will not be visualized mammographically. In the management of a palpable breast mass, a negative mammogram must not discourage biopsy of a clinically suspicious lesion. Electronically Signed By: Shae hickey/:08/22/2022 00:11:29 ACR BI-RADS Category 0: Incomplete 3340F PARENCHYMAL PATTERN: (A) - The breast(s) demonstrate(s) scattered fibroglandular densities. BI-RADS CATEGORY: (0) - 0 Mammo and US [id number] Immediate follow-up LATERALITY: (B)
== END 2022-08-21 13:24 | disposition home or self-care (01) ==
LOC: DI.N 13:23
DX: Z12.31 Encounter for screening mammogram for malignant neoplasm of breast (principal); R92.8 Other abnormal and inconclusive findings on diagnostic imaging of breast

== ENCOUNTER 2022-09-11 10:57 | Outpatient (CLI) | payer MEDICARE ==
--- NOTE | 2022-09-12 10:33 | Mammography Report ---
UNILATERAL LEFT DIGITAL DIAGNOSTIC MAMMOGRAM 3D/2D WITH ADDITIONAL VIEWS: 09/11/2022 CLINICAL: Patient returns today to evaluate an asymmetry in the left breast. Comparison is made to exams dated: 08/21/2022 mammogram, 09/18/2019 mammogram, and 02/10/2014 mammogram - [facility]. There are scattered areas of fibroglandular density in the left breast (category b / 25%-50% glandula r tissue). There is an asymmetry in the left breast anterior depth central to the nipple seen on the craniocauda l view only. This is less prominent. No other significant masses or calcifications are seen in the breast. IMPRESSION: BENIGN The asymmetry in the left breast likely represents fibroglandular tissue with summation artifact and is benign. This is less prominent on spot compression views. There is no mammographic evidence of malignancy. Return to annual mammogram screening schedule is rec ommended. Based on the Tyrer Cuzick model (a risk assessment model) the patients lifetime risk is 4.3% and her 10 year risk is 2.7%. According to the ACR, ACS, and NCCN guidelines, an annual breast MRI exam lucille g with mammogram is recommended if the patients lifetime risk is 20% or greater. This exam was interpreted at Station ID: [id number]. NOTE: For mammograms, a report in lay terms will be sent to the patient. Approximately 15% of breast malignancies will not be visualized mammographically. In the management of a palpable breast mass, a negative mammogram must not discourage biopsy of a clinically suspicious lesion. Electronically Signed By: Eliecer Goncalves M.D. lc/:09/11/2022 12:05:52 ACR BI-RADS Category 2: Benign Finding(s) 3342F PARENCHYMAL PATTERN: (A) - The breast(s) demonstrate(s) scattered fibroglandular densities. BI-RADS CATEGORY: (2) - 2 Mammogram [id number] return to screening LATERALITY: (B)
== END 2022-09-11 10:58 | disposition home or self-care (01) ==
LOC: DI 10:57
PROVIDERS: ATTEND Physician Assistant Medical
DX: R92.8 Other abnormal and inconclusive findings on diagnostic imaging of breast (principal)

== ENCOUNTER 2022-11-19 09:41 | Outpatient (CLI) | payer MEDICARE ==
[2022-11-19 12:07] LABS: BASOPHILS # (AUTO) 0.1 10^3/uL (0.0-0.1); EOSINOPHILS # (AUTO) 0.7 10^3/uL (0.0-0.7); EOSINOPHILS % (AUTO) 10.3 %; HCT - HEMATOCRIT 38.1 % (37.0-47.0); HGB - HEMOGLOBIN 12.1 g/dL (12.0-16.0); LYMPHOCYTES # (AUTO) 2.2 10^3/uL (1.5-3.5); LYMPHOCYTES % (AUTO) 32.5 %; MEAN CORPUSCULAR HEMOGLOBIN 29.5 pg (27.0-31.0); MEAN CORPUSCULAR HGB CONC 31.8 g/dL (32.0-36.0); MEAN CORPUSCULAR VOLUME 92.9 fL (81.0-99.0); MEAN PLATELET VOLUME 10.2 fL (7.9-10.8); MONOCYTES # (AUTO) 0.4 10^3/uL (0.0-1.0); MONOCYTES % (AUTO) 5.4 %; NEUTROPHILS # (AUTO) 3.4 10^3/uL (1.5-6.6); NEUTROPHILS % (AUTO) 50.5 %; PLT - PLATELET COUNT 325 10^3/uL (130-450); RED CELL DISTRIBUTION WIDTH 13.9 % (12.0-15.0); WHITE BLOOD COUNT 6.8 x10^3/uL (4.8-10.8)
[2022-11-19 12:41] LABS: ALBUMIN 3.6 g/dL (3.2-5.5); BILIRUBIN,TOTAL 0.6 mg/dL (0.2-1.0); CALCIUM 9.8 mg/dL (8.5-10.3); POTASSIUM 4.3 mmol/L (3.5-5.0); TOTAL PROTEIN 7.3 g/dL (6.7-8.2)
[2022-11-19 12:57] LABS: ESTIMATED AVERAGE GLUCOSE 183 mg/dL (70-100)
== END 2022-11-19 09:42 | disposition home or self-care (01) ==
LOC: LAB.N 09:41
PROVIDERS: ATTEND Physician Assistant Medical
DX: E11.9 Type 2 diabetes mellitus without complications (principal); N39.0 Urinary tract infection, site not specified
CPT/HCPCS: 36415; 80053; 83036; 85025

== ENCOUNTER 2023-03-01 07:33 | Outpatient (CLI) | payer MEDICARE ==
[2023-03-01 12:34] LABS: CALCIUM 9.4 mg/dL (8.5-10.3); CREATININE 0.9 mg/dL (0.4-1.0); POTASSIUM 4.3 mmol/L (3.5-5.0)
[2023-03-01 13:04] LABS: ESTIMATED AVERAGE GLUCOSE 194 mg/dL (70-100); HEMOGLOBIN A1c% 8.4 % (4.27-6.07)
== END 2023-03-01 07:34 | disposition home or self-care (01) ==
LOC: LAB.N 07:33
PROVIDERS: ATTEND Physician Assistant Medical
DX: E11.9 Type 2 diabetes mellitus without complications (principal)
CPT/HCPCS: 36415; 80048; 83036

== ENCOUNTER 2023-03-04 08:00 | Outpatient (CLI) | payer MEDICARE | END 2023-03-04 23:59 | disposition home or self-care (01) | LOC: LAB.WCP 08:00 | PROVIDERS: ATTEND Physician Assistant Medical | DX: E11.621 Type 2 diabetes mellitus with foot ulcer (principal) | CPT/HCPCS: 87070; 87181; 87205 ==

== ENCOUNTER 2023-05-30 09:33 | Outpatient (CLI) | payer MEDICARE ==
[2023-05-30 11:53] LABS: BASOPHILS # (AUTO) 0.1 10^3/uL (0.0-0.1); BASOPHILS % (AUTO) 0.9 %; EOSINOPHILS # (AUTO) 0.3 10^3/uL (0.0-0.7); EOSINOPHILS % (AUTO) 3.3 %; HGB - HEMOGLOBIN 12.9 g/dL (12.0-16.0); LYMPHOCYTES # (AUTO) 2.6 10^3/uL (1.5-3.5); LYMPHOCYTES % (AUTO) 33.3 %; MEAN CORPUSCULAR HEMOGLOBIN 30.9 pg (27.0-31.0); MEAN CORPUSCULAR HGB CONC 33.1 g/dL (32.0-36.0); MEAN CORPUSCULAR VOLUME 93.3 fL (81.0-99.0); MEAN PLATELET VOLUME 10.1 fL (7.9-10.8); MONOCYTES # (AUTO) 0.4 10^3/uL (0.0-1.0); MONOCYTES % (AUTO) 5.6 %; NEUTROPHILS # (AUTO) 4.3 10^3/uL (1.5-6.6); NEUTROPHILS % (AUTO) 56.6 %; PLT - PLATELET COUNT 327 10^3/uL (130-450); RED BLOOD COUNT 4.18 10^6/uL (4.20-5.40); RED CELL DISTRIBUTION WIDTH 12.3 % (12.0-15.0); WHITE BLOOD COUNT 7.7 x10^3/uL (4.8-10.8)
[2023-05-30 12:32] LABS: ALBUMIN 4.1 g/dL (3.2-5.5); ALBUMIN/GLOBULIN RATIO 1.4 (1.0-2.2); ALKALINE PHOSPHATASE 96 IU/L (42-121); ALT ALANINE AMINOTRANSFERASE 29 IU/L (10-60); AST ASPARTATE AMINOTRANSFERASE 19 IU/L (10-42); BILIRUBIN,TOTAL 0.4 mg/dL (0.2-1.0); BUN - BLOOD UREA NITROGEN 33 mg/dL (6-20); CALCIUM 9.6 mg/dL (8.5-10.3); CARBON DIOXIDE - CO2 25 mmol/L (21-32); CHLORIDE 109 mmol/L (101-111); CHOLESTEROL 124 mg/dL; GFR - MDRD 55 (>89); GLUCOSE 154 mg/dL (74-104); HDL CHOLESTEROL 41 mg/dL; LDL CHOLESTEROL,CALCULATED 58 mg/dL; LDL/HDL RATIO 1.4 (<4.4); POTASSIUM 4.2 mmol/L (3.5-4.5); SODIUM 140 mmol/L (135-145); TOTAL PROTEIN 7.1 g/dL (6.4-8.9); TRIGLYCERIDES 124 mg/dL (48-352); VLDL CHOLESTEROL 25 mg/dL
[2023-05-30 12:39] LABS: THYROID STIMULATING HORMONE 1.65 uIU/mL (0.34-5.60)
[2023-05-30 12:40] LABS: ESTIMATED AVERAGE GLUCOSE 180 mg/dL (70-100); HEMOGLOBIN A1c% 7.9 % (4.27-6.07)
== END 2023-05-30 09:34 | disposition home or self-care (01) ==
LOC: LAB.N 09:33
PROVIDERS: ATTEND Physician Assistant Medical
DX: E78.5 Hyperlipidemia, unspecified (principal); E11.621 Type 2 diabetes mellitus with foot ulcer; L97.529 Non-pressure chronic ulcer of other part of left foot with unspecified severity
CPT/HCPCS: 36415; 80053; 80061; 83036; 83721; 84443; 85025

== ENCOUNTER 2023-11-29 10:59 | Outpatient (CLI) | payer MEDICARE, MEDICAID ==
[2023-11-29 18:35] LABS: BUN - BLOOD UREA NITROGEN 32 mg/dL (6-20); CALCIUM 9.6 mg/dL (8.5-10.3); CARBON DIOXIDE - CO2 25 mmol/L (21-32); CHLORIDE 106 mmol/L (101-111); CHOL/HDL RATIO 3.4 (<4.4); CHOLESTEROL 161 mg/dL; CREATININE 1.1 mg/dL (0.6-1.3); GFR - MDRD 49 (>89); GLUCOSE 247 mg/dL (74-104); HDL CHOLESTEROL 47 mg/dL; LDL CHOLESTEROL,CALCULATED 84 mg/dL; LDL/HDL RATIO 1.8 (<4.4); POTASSIUM 4.3 mmol/L (3.5-4.5); SODIUM 138 mmol/L (135-145); TRIGLYCERIDES 151 mg/dL (48-352); VLDL CHOLESTEROL 30 mg/dL
[2023-11-29 20:21] LABS: ESTIMATED AVERAGE GLUCOSE 169 mg/dL (70-100); HEMOGLOBIN A1c% 7.5 % (4.27-6.07)
== END 2023-11-29 11:00 | disposition home or self-care (01) ==
LOC: LAB.N 10:59
PROVIDERS: ATTEND Physician Assistant Medical
DX: E11.9 Type 2 diabetes mellitus without complications (principal); E78.5 Hyperlipidemia, unspecified
CPT/HCPCS: 36415; 80048; 80061; 83036; 83721

== ENCOUNTER 2023-12-31 10:57 | Outpatient (CLI) | payer MEDICARE, MEDICAID ==
--- NOTE | 2024-01-01 11:14 | Mammography Report ---
BILATERAL DIGITAL SCREENING MAMMOGRAM: 12/31/2023 CLINICAL: Routine screening. Comparison is made to exams dated: 09/11/2022 mammogram, 08/21/2022 mammogram, and 09/18/2019 mammogra m - [facility]. There are scattered areas of fibroglandular density in both breasts (category b / 25%-50% glandular t issue). There is a new irregular high density mass in the left breast central to the nipple middle depth. No other significant masses, calcifications, or other findings are seen in either breast. IMPRESSION: INCOMPLETE: NEEDS ADDITIONAL IMAGING EVALUATION The new irregular high density mass in the left breast is indeterminate. Additional views with possi ble ultrasound are recommended. Based on the Tyrer Cuzick model (a risk assessment model) the patient's lifetime risk is 4.0% and her 10 year risk is 2.8%. According to the ACR, ACS, and NCCN guidelines, an annual breast MRI exam lucille g with mammogram is recommended if the patient's lifetime risk is 20% or greater. This exam was interpreted at Station ID: [id number]. NOTE: For mammograms, a report in lay terms will be sent to the patient. Approximately 15% of breast malignancies will not be visualized mammographically. In the management of a palpable breast mass, a negative mammogram must not discourage biopsy of a clinically suspicious lesion. Electronically Signed By: Saulo herbert/obed:12/31/2023 16:07:29 ACR BI-RADS Category 0: Incomplete 3340F PARENCHYMAL PATTERN: (A) - The breast(s) demonstrate(s) scattered fibroglandular densities. BI-RADS CATEGORY: (0) - 0 Mammo and US [id number] Immediate follow-up LATERALITY: (L)
== END 2023-12-31 10:58 | disposition home or self-care (01) ==
LOC: DI.N 10:57
DX: Z12.31 Encounter for screening mammogram for malignant neoplasm of breast (principal); R92.8 Other abnormal and inconclusive findings on diagnostic imaging of breast; R92.323 Mammographic fibroglandular density, bilateral breasts

== ENCOUNTER 2023-12-31 11:01 | Outpatient (CLI) | payer MEDICARE, MEDICAID | END 2023-12-31 11:02 | disposition home or self-care (01) | LOC: DI.N 11:01 | PROVIDERS: ATTEND Physician Assistant Medical | DX: Z53.9 Procedure and treatment not carried out, unspecified reason (principal) ==

== ENCOUNTER 2023-12-31 11:09 | Outpatient (CLI) | payer MEDICARE, MEDICAID ==
--- NOTE | 2023-12-31 19:18 | XRAY Report ---
PROCEDURE: Lumbar Spine 2-3V INDICATIONS: LOW BACK PAIN TECHNIQUE: 2 views of the lumbar spine were acquired. COMPARISON: None. FINDINGS: Bones: 5 [id number] vertebrae are present. There is straightening of normal lumbar lordosis. L oss of disc height, degenerative endplate changes and bilateral facet arthrosis throughout lumbar spi ne is seen. No vertebral body compression fractures. No suspicious bony lesions. Soft tissues: Overlying bowel gas pattern is normal. No suspicious soft tissue calcifications. IMPRESSION: Moderate degenerative disc disease throughout lumbar spine. No acute compression fracture or signific ant spondylolisthesis. Reviewed by: Shemar Borjas MD on 12/31/2023 7:17 PM PDT Approved by: Shemar Borjas MD on 12/31/2023 7:17 PM PDT Station ID: [id number]
--- NOTE | 2023-12-31 19:19 | XRAY Report ---
PROCEDURE: Cervical Spine 2-3V INDICATIONS: LOW BACK PAIN TECHNIQUE: 3 view(s) of the cervical spine were acquired. COMPARISON: None. FINDINGS: Bones: Straightening of normal cervical lordosis is seen. No acute fracture or dislocation. Loss of d isc height, degenerative endplate changes and bilateral facet hypertrophic changes are noted througho ut cervical spine. The lateral masses of C1 appear intact on the odontoid view. No suspicious bony l esions. Soft tissues: No prevertebral soft tissue swelling. IMPRESSION: No displaced fracture or traumatic subluxation. Moderate degenerative disc disease throughout cervical spine. Reviewed by: Shemar Borjas MD on 12/31/2023 7:18 PM PDT Approved by: Shemar Borjas MD on 12/31/2023 7:18 PM PDT Station ID: [id number]
== END 2023-12-31 23:59 | disposition home or self-care (01) ==
LOC: DI.N 11:09
PROVIDERS: ATTEND Physician Assistant Medical
DX: M51.36 Other intervertebral disc degeneration, lumbar region (principal); M47.816 Spondylosis without myelopathy or radiculopathy, lumbar region; M47.812 Spondylosis without myelopathy or radiculopathy, cervical region

== ENCOUNTER 2024-01-31 09:53 | Outpatient (CLI) | payer MEDICARE, MEDICAID ==
--- NOTE | 2024-02-03 09:06 | Ultrasound Report ---
LIMITED ULTRASOUND OF LEFT BREAST AND AXILLA: 01/31/2024 CLINICAL: Palpable left breast lump and Mammo abnormality. Comparison is made to exams dated: 12/31/2023 mammogram, 09/11/2022 mammogram, 08/21/2022 mammogram, mammogram, and 09/18/2019 mammogram - [facility]. Color flow ultrasound of the left breast 3 o'clock, and axilla regions was performed. Singh scale im ages of the real-time examination were reviewed. There is a 1.6 cm x 1.6 cm x 2.1 cm irregular mass with an indistinct margin in the left breast at 3 o'clock middle depth 5 cm from the nipple. This irregular mass displays posterior acoustic shadowing . No significant abnormalities were seen sonographically in the left axilla. IMPRESSION: HIGHLY SUGGESTIVE OF MALIGNANCY The 1.6 cm x 1.6 cm x 2.1 cm irregular mass in the left breast is highly suggestive of malignancy. A n ultrasound guided biopsy is recommended. The findings and recommendations were discussed with the patient by the onsite radiologist, Dr. Gonsalves, at the time of the exam. No significant abnormalities were seen sonographically in the left axilla. This exam was interpreted at Station ID: [id number]. Electronically Signed By: Saulo Carrillo M.D. ar/:01/31/2024 14:09:32 Ultrasound BI-RADS: 5 Highly suggestive of malignancy BI-RADS CATEGORY: (5) - 5 Biopsy [id number] Immediate follow-up LATERALITY: (L)
--- NOTE | 2024-02-03 09:06 | Mammography Report ---
UNILATERAL LEFT DIGITAL DIAGNOSTIC MAMMOGRAM 3D/2D WITH LATEROMEDIAL SPOT COMPRESSION: 01/31/2024 CLINICAL: Patient returns for additional imaging over a suspected mass in the left breast. Comparison is made to exams dated: 12/31/2023 mammogram, 09/11/2022 mammogram, 08/21/2022 mammogram, a nd 09/18/2019 mammogram - [facility]. There are scattered areas of fibroglandular density in the left breast (category b / 25%-50% glandula r tissue). There is a new 2.1 cm irregular high density mass with a spiculated margin in the left breast at 3 o' clock middle depth. This is seen in additional views. No other significant masses or calcifications are seen in the breast. IMPRESSION: INCOMPLETE: NEEDS ADDITIONAL IMAGING EVALUATION The new 2.1 cm irregular high density mass in the left breast is indeterminate. An ultrasound is rec ommended. Based on the Tyrer Cuzick model (a risk assessment model) the patient's lifetime risk is 4.0% and her 10 year risk is 2.8%. According to the ACR, ACS, and NCCN guidelines, an annual breast MRI exam lucille g with mammogram is recommended if the patient's lifetime risk is 20% or greater. This exam was interpreted at Station ID: [id number]. NOTE: For mammograms, a report in lay terms will be sent to the patient. Approximately 15% of breast malignancies will not be visualized mammographically. In the management of a palpable breast mass, a negative mammogram must not discourage biopsy of a clinically suspicious lesion. Electronically Signed By: Saulo herbert/obed:01/31/2024 14:06:57 ACR BI-RADS Category 0: Incomplete 3340F PARENCHYMAL PATTERN: (A) - The breast(s) demonstrate(s) scattered fibroglandular densities. BI-RADS CATEGORY: (0) - 0 Ultrasound [id number] Immediate follow-up LATERALITY: (L)
== END 2024-01-31 09:54 | disposition home or self-care (01) ==
LOC: DI 09:53
PROVIDERS: ATTEND Physician Assistant Medical
DX: N63.25 Unspecified lump in the left breast, overlapping quadrants (principal); R92.322 Mammographic fibroglandular density, left breast

== ENCOUNTER 2024-02-10 13:05 | Outpatient (CLI) | payer MEDICARE, MEDICAID ==
[2024-02-10] MEDS ORDERED: LIDOCAINE 1%-EPI 1:100000 20 ML MDV ONE (13:19)
[2024-02-10] MEDS ORDERED: LIDOCAINE-MPF 1% 5 ML VIAL ONE (13:19)
[2024-02-10] MEDS: LIDOCAINE-MPF 1% 5 ML VIAL TD ONE (15:03)
[2024-02-10] MEDS: LIDOCAINE 1%-EPI 1:100000 20 ML MDV SUBQ ONE (15:04)
--- NOTE | 2024-02-11 10:10 | Mammography Report ---
UNILATERAL LEFT DIGITAL DIAGNOSTIC MAMMOGRAM - LEFT BREAST POST-PROCEDURE IMAGING FOR MARKER PLACEMEN CLINICAL: Post left breast ultrasound biopsy clip placement imaging. Comparison is made to exams dated: 01/31/2024 ultrasound, 01/31/2024 mammogram, 12/31/2023 mammogram, 11/11/2021 mammogram, and 08/21/2022 mammogram - [facility]. There are scattered areas of fibroglandular density in the left breast (category b / 25%-50% glandula r tissue). There is a marker clip in the appropriate position in the left breast at 3 o'clock middle depth. Thi s marker clip placement is at the biopsy site. IMPRESSION: POST PROCEDURE MAMMOGRAM FOR MARKER PLACEMENT There was a successful marker clip placement in the left breast middle depth. Based on the Tyrer Cuzick model (a risk assessment model) the patient's lifetime risk is 4.0% and her 10 year risk is 2.8%. According to the ACR, ACS, and NCCN guidelines, an annual breast MRI exam lucille g with mammogram is recommended if the patient's lifetime risk is 20% or greater. This exam was interpreted at Station ID: [id number]. NOTE: For mammograms, a report in lay terms will be sent to the patient. Approximately 15% of breast malignancies will not be visualized mammographically. In the management of a palpable breast mass, a negative mammogram must not discourage biopsy of a clinically suspicious lesion. Electronically Signed By: Saulo herbert/penrad:02/11/2024 08:00:58 ACR BI-RADS Category Post-procedure mammogram for marker placement PARENCHYMAL PATTERN: (A) - The breast(s) demonstrate(s) scattered fibroglandular densities. BI-RADS CATEGORY: () - Unspecified - other recall n/a LATERALITY: (B)
--- NOTE | 2024-02-13 11:09 | Ultrasound Report ---
ULTRASOUND GUIDED BIOPSY LEFT BREAST USING VACUUM DEVICE WITH MARKING DEVICE INSERTED AND POST DIGITA L MAMMOGRAPHIC IMAGIN02/10/2024 CLINICAL: Left breast mass. PATIENT CONSENT: Risks (minor bleeding, infection, vasovagal reaction and repeat procedure), benefits and alternatives were explained to the patient and written informed consent was obtained. Correlation is made to exams dated: 01/31/2024 ultrasound, 01/31/2024 mammogram, 12/31/2023 mammogram, 09/11/2022 mammogram, and 08/21/2022 mammogram - [facility]. An ultrasound guided biopsy using real-time ultrasound was performed for the 1.6 cm x 1.6 cm x 2.1 cm mass located in the left breast at 3 o'clock middle depth 5 cm from the nipple. This was described on the previous mammography and ultrasound reports. The skin was prepped in the usual manner. Local anesthetic was administered to the access site. A skin nathan was made in the breast. The abnormalit y was approached from the lateral aspect. A 13 gauge biopsy needle was placed adjacent to the abnorm ality under ultrasound guidance. Once the needle was documented to be in the correct location, five specimens were obtained using the Mammotome biopsy system. A clip was inserted into the biopsy cavit y. A sterile dressing was applied to the access site. Post procedure digital mammographic imaging d emonstrates the location device at the targeted area. The specimens were sent to the laboratory for pathological analysis. IMPRESSION: ULTRASOUND GUIDED BIOPSY MALIGNANT Ultrasound guided biopsy of the 1.6 cm x 1.6 cm x 2.1 cm mass in the left breast at 3 o'clock middle depth 5 cm from the nipple was successful with no apparent post procedure complications. 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 Pathology results are concordant with imaging fin dings. A surgical/oncologic consultation is recommended. This exam was interpreted at Station ID: [id number]. Saulo Perez M.D. ar,aty/:02/12/2024 23:48:03 BI-RADS CATEGORY: () - Unspecified - other recall n/a LATERALITY: (B)
== END 2024-02-10 13:06 | disposition home or self-care (01) ==
LOC: DI 13:05
PROVIDERS: ATTEND Physician Assistant Medical
DX: R92.322 Mammographic fibroglandular density, left breast (principal); C50.812 Malignant neoplasm of overlapping sites of left female breast; Z17.0 Estrogen receptor positive status [ER+]
CPT/HCPCS: 19083

== ENCOUNTER 2024-02-19 12:50 | Outpatient (CLI) | payer MEDICARE, MEDICAID ==
[2024-02-19 17:46] LABS: CREATININE 1.1 mg/dL (0.6-1.3); POTASSIUM 4.3 mmol/L (3.5-4.5)
[2024-02-19 20:49] LABS: ESTIMATED AVERAGE GLUCOSE 186 mg/dL (70-100); HEMOGLOBIN A1c% 8.1 % (4.27-6.07)
== END 2024-02-19 12:51 | disposition home or self-care (01) ==
LOC: LAB.N 12:50
PROVIDERS: ATTEND Physician Assistant Medical
DX: E11.9 Type 2 diabetes mellitus without complications (principal)
CPT/HCPCS: 36415; 80048; 83036

== ENCOUNTER 2024-02-21 07:12 | Outpatient (CLI) | payer MEDICARE, MEDICAID ==
[2024-02-21] MEDS ORDERED: GADOTERATE MEGLUMINE 10 MMOL/20 ML VIAL ONE (07:56)
[2024-02-21] MEDS ORDERED: GADOTERATE MEGLUMINE 5 MMOL/10 ML VIAL ONE (07:56)
== END 2024-02-21 07:13 | disposition home or self-care (01) ==
LOC: DI 07:12
PROVIDERS: ATTEND Physician Assistant Medical
DX: Z53.9 Procedure and treatment not carried out, unspecified reason (principal)
CPT/HCPCS: A9575 ×2

== ENCOUNTER 2024-04-20 09:00 | Day surgery (SDC) | payer MEDICARE, MEDICAID ==
[~2024-04-20 09:00] MED LIST: ceFAZolin 2 GM VIAL ONE
[2024-04-20] MEDS: LACTATED RINGERS 1,000 ML IV ONE ×3 (09:10→17:12)
[2024-04-20] MEDS: ACETAMINOPHEN 500 MG TABLET PO ONE (09:26)
--- NOTE | 2024-04-20 12:36 | ANESTHESIA ---
Pre-Anesthesia VS, & Labs - Diagnosis left breast ca - Procedure left mastectomy and port placement Vital Signs: Temp Pulse Resp BP Pulse Ox O2 Flow Rate 36.4 C L 78 12 138/60 H 99 04/20/24 09:26 04/20/24 09:26 04/20/24 09:26 04/20/24 09:26 04/20/24 09:26 Height: 5 ft 8 in Weight (kg): 109 kg Body Mass Index: 36.5 BMI Classification: Obese - NPO >8 hours - Is Patient ?: No - Lab Results Current Lab Results: Laboratory Tests 04/20/24 09:35: POC Whole Bld Glucose 220 H Lab results reviewed: Yes Home Medications and Allergies Ibuprofen 200 mg PO DAILY PRN 08/02/15 glipiZIDE [Glucotrol] 10 mg PO BID 08/02/15 Lovastatin 20 mg PO QPM 02/28/18 Insulin Degludec [Tresiba] 22 unit SUBQ DAILY 09/28/21 Lisinopril/Hydrochlorothiazide [Zestoretic 20-12.5 mg Tablet] 1 each PO DAILY 09/28/21 Aspirin Chewable [St Pantera Aspirin] 81 mg PO ONCE 11/14/23 Acetaminophen [Pain Relief Extra Strength] 500 mg PO BID 03/30/24 Clopidogrel Bisulfate [Plavix] 75 mg PO DAILY 03/30/24 Cyclobenzaprine [Flexeril] 10 mg PO TID PRN 03/30/24 Dulaglutide [Trulicity] 4.5 mg SUBQ OAW 03/30/24 Fluticasone [Flonase] 1 sprays STAR BID PRN 03/30/24 Insulin Lispro [Humalog Kwikpen U-100] 10 - 15 unit SUBQ TIDWM 03/30/24 Allergies/Adverse Reactions: Allergies Allergy/AdvReac Type Severity Reaction Status Date / Time amoxicillin [From Augmentin] Allergy Itching Verified 09/28/21 12:04 clavulanic acid Allergy Itching Verified 09/28/21 12:04 [From Augmentin] codeine Allergy Itching Verified 08/02/15 15:24 Anes History & Medical History - Anesthetic History Anesthesia Complications: reports: No previous complications Family history of Anesthesia Complications: Denies - Medical History Cardiovascular: reports: Hypertension, High cholesterol Pulmonary: reports: None Gastrointestinal: reports: Chronic constipation Urinary: reports: Incontinence Neuro: reports: Peripheral neuropathy Musculoskeletal: reports: Osteoarthritis, Chronic back pain, Other Endocrine/Autoimmune: reports: Type 2 diabetes (uses insulin) Skin: reports: Rosacea Smoking Status: Former smoker Psychosocial: reports: No issues indicated - Surgical History General: reports: Cholecystectomy, Appendectomy, Colonoscopy Eyes Ears Nose Throat (EENT): reports: Cataracts Gynecologic: reports: Hysterectomy, Oophrectomy Orthopedic: reports: Knee replacement Results - EKG Results EKG Comparison: Reviewed EKG Exam General: Alert, Oriented x3 Dental: WNL Neck Mobility: Reduced Thyromental Distance: 4-6 cm Respiratory: Lungs clear Cardiovascular: Regular rate Plan Anesthesia Type: General Consent for Procedure(s) Verified and Reviewed: Yes Code Status: Attempt Resuscitation ASA classification: 3-Severe systemic disease Is this case an emergency?: No
[2024-04-20] MEDS ORDERED: ONDANSETRON 4 MG/2 ML VIAL IVP PRN ×2 (12:37→17:19)
[2024-04-20] MEDS ORDERED: METOCLOPRAMIDE 10 MG/2 ML VIAL IVP PRN (12:37)
[2024-04-20] MEDS ORDERED: fentaNYL 100 MCG/2 ML VIAL IVP PRN (12:37)
[2024-04-20] MEDS ORDERED: ePHEDrine 50 MG/ML VIAL IVP PRN (12:37)
[2024-04-20] MEDS ORDERED: ATROPINE ABBOJECT 1 MG/10 ML SYRINGE IVP PRN (12:37)
[2024-04-20] MEDS ORDERED: NALOXONE 0.4 MG/ML VIAL IVP PRN (12:37)
[2024-04-20] MEDS ORDERED: LIDOCAINE-PF 2% 10 ML AMP SUBQ ONE (12:48)
[2024-04-20] MEDS ORDERED: SUCCINYLCHOLINE 200 MG/10 ML VIAL ONE (12:48)
[2024-04-20] MEDS ORDERED: PROPOFOL 200 MG/20 ML VIAL IVP ONE (12:48)
[2024-04-20] MEDS ORDERED: INSULIN REGULAR, HUMAN 300 UNIT/3 ML PEN ONE (12:49)
[2024-04-20] MEDS ORDERED: fentaNYL 100 MCG/2 ML VIAL ONE ×2 (12:49→15:29)
[2024-04-20] MEDS ORDERED: MIDAZOLAM 2 MG/2 ML VIAL ONE (12:49)
[2024-04-20] MEDS ORDERED: BUPIVACAINE 0.5% PF 10 ML VIAL ONE ×2 (12:51→14:32)
[2024-04-20] MEDS ORDERED: LIDOCAINE 1%-EPI 1:100000 20 ML MDV ONE ×2 (12:51→14:32)
[2024-04-20] MEDS ORDERED: LACTATED RINGERS 1,000 ML IV SCH (13:00)
[2024-04-20] MEDS: INSULIN REGULAR, HUMAN 300 UNIT/3 ML PEN SUBQ ONE (13:11)
[2024-04-20] MEDS: BUPIVACAINE 0.5% PF 30 ML VIAL SUBQ ONE ×3 (13:51)
[2024-04-20] MEDS: LIDOCAINE MPF 2%-EPI 1:200000 20 ML VIAL SUBQ ONE ×3 (13:52)
[2024-04-20] MEDS ORDERED: SEVOFLURANE 250 ML LIQUID INH ONE (15:04)
[2024-04-20] MEDS ORDERED: ONDANSETRON 4 MG/2 ML VIAL ONE (15:31)
[2024-04-20] MEDS ORDERED: DEXAMETHASONE 4 MG/ML VIAL ONE (15:31)
--- NOTE | 2024-04-20 17:11 | XRAY Report ---
PROCEDURE: OR C-Arm Procedure INDICATIONS: PORTACATH PLACEMENT FLUORO TIME: 0.2 MIN TECHNIQUE: Fluoroscopic images were obtained for right port placement. COMPARISON: None. Findings and impression: Please see operative note for full details. Right port placement fluoroscopic images show tip project ing over the proximal SVC. ET tube is present. Reviewed by: Eliecer Goncalves MD on 04/20/2024 5:09 PM PDT Approved by: Eliecer Goncalves MD on 04/20/2024 5:09 PM PDT Station ID: [id number]
[2024-04-20] MEDS ORDERED: ACETAMINOPHEN 325 MG TABLET PO PRN (17:19)
--- NOTE | 2024-04-20 17:33 | XRAY Report ---
PROCEDURE: Post Port Placement 1V CXR INDICATIONS: R IJ PAC placement, PICC removal TECHNIQUE: One view of the chest was acquired. COMPARISON: 01/28/2015. FINDINGS: Surgical changes and devices: Right chest wall Port-A-Cath tip is in SVC.. Lungs and pleura: Blunting of left costophrenic angle is seen concerning for small left pleural effu judith. No pneumothorax. There is mild pulmonary vascular congestion and pulmonary edema. Superimposed interstitial infiltrates cannot be excluded. Mediastinum: Mediastinal contours appear normal. Heart size is enlarged. Bones and chest wall: No suspicious bony lesions. Overlying soft tissues appear unremarkable. IMPRESSION: Right chest wall Port-A-Cath tip is in SVC. Small left pleural effusion, pulmonary vascular congestion and pulmonary edema. Cannot rule out super imposed interstitial infiltrates. No gross pneumothorax. Reviewed by: Shemar Germain MD on 04/20/2024 5:32 PM PDT Approved by: Shemar Germain MD on 04/20/2024 5:32 PM PDT Station ID: [id number]
--- NOTE | 2024-04-20 17:39 | OPERATIVE REPORT ---
Operative Report - General Procedure Date: 04/20/24 Planned Procedure: left mastectomy, left sentinel lymph node biopsy, portacatheter placement Pre-Op Diagnosis: invasive ductal carcinoma Procedure Performed: left mastectomy, left sentinel lymph node biopsy, R IJ portacatheter placement with fluoroscopy and ultrasound guidance Post Op Diagnosis: invasive ductal carcinoma - Procedure Note Primary Surgeon: Dr. Meka Tanner Anesthesia Provider: Eloy Gibson CRNA Anesthesia Technique: General ET tube, Local Pathology: 1. left mastectomy 2. left sentinel node, 949 Estimated Blood Loss (mL): 50 Drain/Tube Type: Sandeep Jacinto round drain (left mastectomy) Indications: Patient reports her left breast has felt "different" for the last year. Her last mammogram in 2021 demonstrated an area that looked somewhat abnormal, but no additional follow-up was ordered at that time. Repeat imaging this year demonstrates a large, 2 cm mass at the 3 o'clock position. Subsequent biopsy indicates invasive ductal carcinoma which is triple positive and intermediate- grade. The patient has struggled with difficulty with wound healing in the past and has insulin dependent diabetes as well as peripheral arterial disease re quiring her to be on chronic Plavix and aspirin. She was seen and evaluated in the clinic where we discussed the risks, benefits, and alternatives of mastectomy versus lumpectomy followed by radiation. The patient is interested in reconstruction. Given her history of poor wound healing and the large size of the mass compared to the size of the patient's breast, I recommended mastectomy without immediate reconstruction and sentinel lymph node biopsy. Her medical oncology team is also requested a portacatheter replaced at the time of surgery. After considering her options, the patient opted for mastectomy without reconstruction, sentinel lymph node biopsy, and portacatheter placement. We discussed the risks, benefits, and alternatives of this procedure including but not limited to bleeding, infection, poor wound healing, damage to surrounding structures, and the need for further surgeries or procedures. The patient voiced understanding, her questions were answered, and she wished to proceed. Consent was signed by the patient prior to surgery. Findings: 1. Portacatheter placed in right internal jugular vein, flushed and kye easily, loaded with 1.5 mL heparinized saline 2. Right mastectomy 3. 1 sentinel lymph node, 949 Complications: None - Other Other Information/Narrative: The patient was taken to the operative suite and placed in the supine position preoperative ERAS medications given. Preoperative antibiotics given. General endotracheal anesthesia was induced. An ultrasound was used to verify the right internal jugular vein was widely patent. The patient was then prepped and draped in the usual, sterile fashion. Next, a sterile ultrasound probe was used to visualize the right internal jugular vein local anesthetic was injected into the skin and subcutaneous tissues overlying this vessel and an 11 blade scalpel was used to make a small skin nathan. Next, under direct ultrasound guidance, a Cook needle was used to gain access to the right internal jugular vein. This was successful on the first attempt. There was excellent return of dark red nonpulsatile blood. A guidewire was passed through the Cook needle without resistance. Fluoroscopy was used to verify the position of the wire. Ultrasound was also used to verify the position of the wire. The patient's previously placed PICC line was removed at this time and pressure was held for 5 minutes. Next, attention was turned to the chest. The location was chosen on the right anterior chest wall for the portacatheter to sit. The skin and subcutaneous tissues in this area were anesthetized with local as was the path which the catheter would follow up to the neck incision. A 15 blade scalpel was used to make a 2 cm incision in the which was carried down through the skin and subcutaneous tissues to the level of the clavipectoral fascia. A pocket was made with blunt dissection to accommodate the port. The port easily fit within the pocket. 2 interrupted sutures of 3-0 PDS were placed through the port to tack it to the clavipectoral fascia. These were tied into place and then the port was tunneled from the inferior chest wall incision to the superior neck incision. Next, the catheter was cut to the appropriate length, 21 cm, under direct fluoroscopic guidance. A dilator and sheath were passed over the guidewire under direct fluoroscopic guidance and the dilator and guidewire were removed leaving only the breakaway sheath in place. The catheter was passed through the sheath and the sheath was broken away. The catheter was the only thing that remained within the vessel. Fluoroscopy confirmed that the catheter tip was in good position and that there were no kinks at the neck. The catheter flushed and kye easily. Next, 3-0 Vicryl was used in an interrupted fashion to reapproximate the deep dermal tissues at the chest incision. Then, 4-0 Monocryl was used in an interrupted subcuticular fashion to reapproximate the skin at the neck incision and in a running subcuticular fashion to reapproximate the skin at the chest incision. A sterile dressing of skin glue was placed. The port was flushed with 1.5 mL 100 units/mL heparinized saline. The patient tolerated the procedure well and there were no complications. A postoperative chest x-ray is pending at this time. Next, the patient was reprepped and draped in the usual sterile fashion for the mastectomy and sentinel lymph node biopsy. A preop surgical timeout was performed. Attention was turned to the patient's left breast. An incision was planned to incorporate the nipple areolar complex. Local was injected following the lines of the incision. An incision was made with a 10 blade scalpel and skin flaps were raised superiorly to the clavicle and inferiorly to the inframammary crease, medially to the sternum, and laterally to the latissimus. The dissection was carried from medial to lateral. The breast was removed and hemostasis was ensured. The specimen was labeled short superior, long lateral, anterior skin. The tissues were irrigated with 500 mL of warm normal saline. Again hemostasis was confirmed. Attention was then turned to the left axilla via the mastectomy incision. The axillary fascia was incised in the area of greatest uptake using the neoprobe. The sentinel lymph node was identified using the neoprobe. Clips were used proximally and distally to the node and it was removed. The first node had a maximal reading of 949 on the back table and was noted to be markedly enlarged, but rubbery. On further inspection, there were no additional lymph nodes that had at least 10% uptake,95, and no additional abnormal palpable nodes. Hemostasis was confirmed in the axilla. A MARYJO drain was placed in the subcutaneous tissue of the mastectomy incision. This was sewn in place with 2-0 nylon suture. The deep dermal tissues were closed with 2-0 Vicryl in an interrupted fashion. The skin was closed with Ensorb subcutaneous dolly. Sterile dressing of skin glue was placed. Ghassan wrap's were placed. The patient tolerated the procedure well. There were no complications. She was extubated in the operating room and transferred to recovery in stable condition. Synoptic Breast SNB - [place] Node Biopsy Operation performed with curative intent: Yes Tracer(s) used to identify sentinel nodes in the upfront surgery (non- neoadjuvant) setting (select all that apply): Radioactive tracer Tracer(s) used to identify sentinel nodes in the neoadjuvant setting (select all that apply): N/A All nodes (colored or non-colored) present at the end of a dye-filled lymphatic channel were removed: N/A All significantly radioactive nodes were removed: Yes All palpably suspicious nodes were removed: Yes Biopsy-proven positive nodes marked with clips prior to chemotherapy were identified and removed: N/A
[2024-04-20] MEDS ORDERED: HYDROmorphone 0.5 MG/0.5 ML SYRINGE ONE (17:49)
[2024-04-20] MEDS: HYDROmorphone 0.5 MG/0.5 ML SYRINGE IVP PRN (17:50)
--- NOTE | 2024-04-20 18:18 | ANESTHESIA POST OP EVALUATION ---
Anesthesia Post Eval - Post Anesthesia Eval Vitals: Last Vital Signs Temp 36.5 C 04/20/24 18:10 Pulse 87 04/20/24 18:10 Resp 13 04/20/24 18:10 BP 154/62 H 04/20/24 18:10 Pulse Ox 95 04/20/24 18:10 O2 Flow Rate CV Function Including HR & BP: Stable Pain Control: Satisfactory Nausea & Vomiting: Negative Mental Status: Baseline Respiratory Status: Airway Patent Hydration Status: Satisfactory Anesthesia Complications: None
[2024-04-20] MEDS: oxyCODONE 5 MG TABLET PO PRN (20:07)
[2024-04-20] MEDS: INSULIN LISPRO 300 UNIT/3 ML PEN SUBQ SCH (21:04)
[2024-04-21] MEDS ORDERED: FLUTICASONE NASAL SPRAY NAS PRN (06:53)
[2024-04-21] MEDS ORDERED: CYCLOBENZAPRINE 10 MG TABLET PO PRN (06:53)
[2024-04-21] MEDS ORDERED: DULAGLUTIDE 4.5 MG SUBQ SCH (08:00)
[2024-04-21 08:39] VITALS: BP 142/63; O2SAT 93
[2024-04-21] MEDS: glipiZIDE 5 MG TABLET PO SCH (10:34)
[2024-04-21] MEDS: ASPIRIN CHEW 81 MG TABLET PO ONE (10:34)
[2024-04-21] MEDS: lisinopriL 20 MG TABLET PO SCH (10:34)
[2024-04-21] MEDS: hydroCHLOROthiazide 12.5 MG CAPSULE PO SCH (10:34)
[2024-04-21] MEDS: ACETAMINOPHEN 500 MG TABLET PO SCH (10:34)
[2024-04-21] MEDS ORDERED: PRAVASTATIN 10 MG TABLET PO SCH (21:00)
[2024-04-21] MEDS ORDERED: INSULIN GLARGINE-YFGN 300 UNIT/3 ML PEN SUBQ SCH (21:00)
== END 2024-04-21 11:45 | disposition home or self-care (01) ==
LOC: SDS 09:00 → MS3 17:36 → SDS 04-21 11:45
PROVIDERS: ATTEND Surgery
PROC: 0HTU0ZZ Resection of Left Breast, Open Approach (ICD-10-PCS; principal; 2024-04-20 12:45)
PROC: 07B60ZX Excision of Left Axillary Lymphatic, Open Approach, Diagnostic (ICD-10-PCS; 2024-04-20 12:45)
DX: C50.812 Malignant neoplasm of overlapping sites of left female breast (principal); Z17.0 Estrogen receptor positive status [ER+]; E66.9 Obesity, unspecified; E11.51 Type 2 diabetes mellitus with diabetic peripheral angiopathy without gangrene; Z68.36 Body mass index [BMI] 36.0-36.9, adult; Z79.4 Long term (current) use of insulin; Z79.84 Long term (current) use of oral hypoglycemic drugs; Z79.85 Long-term (current) use of injectable non-insulin antidiabetic drugs; Z79.02 Long term (current) use of antithrombotics/antiplatelets; Z79.82 Long term (current) use of aspirin; Z87.891 Personal history of nicotine dependence; I10 Essential (primary) hypertension; E78.5 Hyperlipidemia, unspecified
CPT/HCPCS: 19303; 36561; 38525; 38792; A9270; C1788; J0330; J1170; J3490; J7120

== ENCOUNTER 2024-05-15 15:21 | Outpatient (CLI) | payer MEDICARE, MEDICAID ==
--- NOTE | 2024-05-16 06:59 | Ultrasound Report ---
PROCEDURE: Arterial Duplex Lwr Ext BL INDICATIONS: OPEN WOUND L LOWER EXTREMITY TECHNIQUE: Color and pulse Doppler interrogation was performed of both lower extremity arterial systems, with im age documentation. COMPARISON: None FINDINGS: Right lower extremity: Common femoral artery: 62 cm/sec, with monophasic flow. Deep femoral artery: 33 cm/sec, with biphasic flow. Proximal superficial femoral artery: 91 cm/sec, with biphasic flow. Mid superficial femoral artery: 73 cm/sec, with biphasic flow. Distal superficial femoral artery: 111 cm/sec, with monophasic flow. Popliteal artery: 48 cm/sec, with biphasic flow. Posterior tibial artery: 11 cm/sec, with monophasic flow. Anterior tibial artery/dorsalis pedis: 77/88 cm/sec, with monophasic flow. Singh-scale imaging description: Scattered atherosclerotic plaque. Left lower extremity: Common femoral artery: 146 cm/sec, with biphasic flow. Deep femoral artery: 122 cm/sec, with monophasic flow. Proximal superficial femoral artery: 216 cm/sec, with biphasic flow. Mid superficial femoral artery not visualized Distal superficial femoral artery not visualized Popliteal artery: 39 cm/sec, with monophasic flow. Posterior tibial artery: 27 cm/sec, with monophasic flow. Anterior tibial artery/dorsalis pedis: 65 cm/sec, with monophasic flow. Singh-scale imaging description: Atherosclerotic plaque present. IMPRESSION: Monophasic waveform in the right common femoral artery, suggestive of significant proximal atheroscle rotic disease. Mid superficial femoral artery and distal superficial femoral artery of the left lower extremity is n ot visualized, possibly occluded. In this case, there is recannulization of the popliteal artery. Monophasic blood flow in the distal right superficial femoral artery, probably indicating upstream st enosis. Reviewed by: Elias Helton MD on 05/16/2024 6:58 AM PDT Approved by: Elias Helton MD on 05/16/2024 6:58 AM PDT Station ID: [id number]
--- NOTE | 2024-05-17 09:38 | Ultrasound Report ---
PROCEDURE: Ankle Brachial Index INDICATIONS: OPEN WOUND L LOWER EXTREMITY TECHNIQUE: Ankle-brachial indices were obtained bilaterally and recorded. COMPARISONS: None. FINDINGS: Right ankle brachial index (HORTENCIA): 0.7 Left ankle brachial index (HORTENCIA): 0.5 Healing potential: Ankle pressures >55 mm Hg in non-diabetics and >80 mm Hg in diabetics are likely to achieve primary h ealing of ischemic foot ulcers. Toe pressures >30 mm Hg are likely to achieve primary healing of ischemic foot ulcers, toe or transme tatarsal amputations. IMPRESSION: Abnormal bilateral ankle brachial index. Reviewed by: Elias Helton MD on 05/17/2024 9:36 AM PDT Approved by: Elias Helton MD on 05/17/2024 9:36 AM PDT Station ID: [id number]
== END 2024-05-15 15:22 | disposition home or self-care (01) ==
LOC: DI 15:21
PROVIDERS: ATTEND Surgery Vascular Surgery
DX: S81.802A Unspecified open wound, left lower leg, initial encounter (principal); R94.39 Abnormal result of other cardiovascular function study
CPT/HCPCS: 93922; 93925

== ENCOUNTER 2024-06-17 15:54 | Outpatient (CLI) | payer MEDICARE, MEDICAID ==
--- NOTE | 2024-06-17 16:41 | Sleep Patient Instructions ---
Sleep Center Visit Summary - Patient Visit Information Reason for Visit: Initial consult for evaluation of sleep disordered breathing and other sleep issues. - Patient Instructions Instructions Attached: Sleep Study Additional Instructions: You will be completing a sleep study, either an in-lab polysomnography (PSG) or home sleep study (HST). You will follow-up in the sleep care office after the sleep study is completed to hear the results and talk about therapy, if needed. You will be called by our office staff to schedule this appointment, but you may contact us with any questions. - Clinic Information Contact: [facility] [address] [place] [address] [email or web address] T: [phone]
--- NOTE | 2024-06-17 16:48 | SLEEP CARE CONSULTATION ---
Information from patient questionnaire entered by Lilliana Nino. I have reviewed and concur with the information entered by Lilliana Nino. This document represents the service I personally performed and the decisions made by me, Laura Villaseñor ARNP. History of Present Illness Service Date and Time: 06/17/2024 1554 Reason for Visit: New patient Accompanied by: GRACE WU Chief Complaint: reports: Unrefreshed sleep, Snoring Date of Onset: All of my adult life Usual bedtime: 11 PM Time it takes to fall asleep: Couple hours Snores at night: Yes Observed to quit breathing while asleep: No Sleeps alone due to snoring: No (N/A) Number of times waking at night: 3 - 4 Reasons for waking at night: reports: Bathroom. denies: Choking, Snoring, Gasping for air Toss, Turn, or Twitch while sleeping: Yes Recalls having dreams: Yes Usually gets out of bed at: Usually between 7 - 8 AM Feels refreshed in the morning: No Morning headache: No Sleepy or fatigued during the day: Yes Ever fallen asleep while driving: No Takes day naps: Yes (daily, 1-2 hours) Dreams during day naps: No Prior sleep studies: No Additional HPI information: I had the pleasure of seeing ANTONIO RODRÍGUEZ today regarding the possibility of her having a sleep disorder. Her current complaints are snoring and unrefreshed sleep. She has snored all her life and has been told it was very loud. Others have woke her up to stop her loud snoring. - Parasomnia Symptoms Ever been unable to move upon waking from sleep: No Walks in sleep: No Talks in sleep: Yes (Occasionally) Ever acted out dreams in sleep: No Ever felt weak in the knees when startled or emotional: Yes (Occasionally) Bothered by creepy, crawly, restless sensations in legs: Yes (has neuropathy in feet and hands) Problems with memory or concentration: Yes (Occasionally - memory) Subjective Initial [employer] Sleepiness Scale score: 5 (06/17/2024) Past Medical History Past Medical History: reports: Hypertension, Diabetes, Other (Breast cancer) Social History The patient is retired. Patient is single and lives in [place]. Have you smoked in the past 12 months: No (on and off, social smoker) Quit date: 2000 Alcohol use: No Caffeine use: Yes Caffeine amount and frequency: Occasionally Family History Family history of sleep disordered breathing: No Family Hx Sleep Apnea: Father: Snoring Allergies and Home Medications Known drug allergies: Yes (as listed) Drug allergies reviewed: Yes Home medication list reviewed: Yes (as listed) Allergy and home medication list: Allergies amoxicillin [From Augmentin] Allergy (Verified 06/17/24 16:31) Itching clavulanic acid [From Augmentin] Allergy (Verified 06/17/24 16:31) Itching codeine Allergy (Verified 06/17/24 16:31) Itching Home Medications Ibuprofen 200 mg PO DAILY PRN 08/02/15 [History] glipiZIDE [Glucotrol] 10 mg PO BID 08/02/15 [History] Lovastatin 20 mg PO QPM 02/28/18 [History] Insulin Degludec [Tresiba] 22 unit SUBQ DAILY 09/28/21 [History] Lisinopril/Hydrochlorothiazide [Zestoretic 20-12.5 mg Tablet] 1 each PO DAILY 09/28/21 [History] Aspirin Chewable [St Pantera Aspirin] 81 mg PO ONCE 11/14/23 [History] Acetaminophen [Pain Relief Extra Strength] 500 mg PO BID 03/30/24 [History] Clopidogrel Bisulfate [Plavix] 75 mg PO DAILY 03/30/24 [History] Dulaglutide [Trulicity] 4.5 mg SUBQ OAW 03/30/24 [History] Insulin Lispro [Humalog Kwikpen U-100] 10 - 15 unit SUBQ TIDWM 03/30/24 [History] Review of Systems Weight loss over past 5 years: 12 Cardiovascular: reports: leg or foot swelling (Foot). denies: high blood pressure Gastrointestinal: reports: nausea (Due to chemo), vomitting (Due to chemo), diarrhea (Due to chemo). denies: heartburn Urinary: reports: frequency Neurological: reports: gait or balance problems Psychiatric: denies: anxiety, depression Ear/Nose/Throat: denies: tonsillectomy, wisdom teeth removed Endocrine: reports: sluggishness (/tired) Musculoskeletal: reports: mobility problems Physical Exam Vital signs obtained and entered by: Laura Groves NP Blood Pressure: 142/66 Cuff size: long (left arm) Heart Rate: 104 O2 Saturation: 96 Height: 5 ft 7.5 in Weight: 232 lb Body Mass Index: 35.8 BMI Classification: Obese Neck circumference: 17 Mouth and throat: narrow oropharynx Soft palate: long Hard palate: normal Uvula: normal Uvula visualization: 0% Mallampati Class IV Tongue: enlarged in size with teeth zhou on lateral edges Tonsils: small Heart: regular rate and rhythm Lungs: clear bilaterally Impression and Plan 1. Suspected Obstructive Sleep Apnea-Hypopnea Syndrome, as suggested by a history of loud and irregular snoring, unrefreshed sleep and cognitive impairment. Narrow oropharynx and obesity are common predisposing factors for obstructive sleep apnea-hypopnea syndrome. I recommend proceeding to polysom nography to confirm the diagnosis and to assess severity. If the patient has significant sleep disordered breathing, a manual CPAP titration study will also be performed to find the optimal treatment pressure. She is concerned that she may not fall asleep well for the study. I offered a one time dose of Zolpidem 5 mg for night of sleep study and she agreed. I reviewed side effects. She has a ride to and from her sleep study. I informed the patient of what the sleep studies involve and after some discussion, obtained agreement to proceed. The pathophysiology of obstructive sleep apnea-hypopnea syndrome was discussed with the patient and health risks of cardiovascular and cerebrovascular disease if not treated. Risks of drowsy driving discussed in detail and patient advised to avoid long distance driving and to pull up hand at the first sign of drowsiness. Patient agreed to plan. * Schedule polysomnography +- manual CPAP titration study and return in 1-2 weeks after the study to discuss result and initiate therapy. * 5 mg Zolpidem by mouth for night of sleep study * Avoid long distance driving or driving when feeling sleepy. * Avoid alcohol, sedative and muscle relaxant around bedtime. * Attempt to lose weight. * Review instructions provided by trained office staff on how to prepare for the sleep study. * Return for follow-up after sleep study completed. Counseling Topics: Weight loss health impact Plan: PSG and follow up Visit Type: In Office Time Spent with Patient (minutes): 32 Provider Statement: I spent 100% of the Face to Face Visit with the patient with greater than 50% spent counseling the patient and coordination of care.
[2024-06-17 16:57] VITALS: BP 142/66; O2SAT 96
== END 2024-06-17 15:55 | disposition home or self-care (01) ==
LOC: SC 15:54
PROVIDERS: ATTEND Nurse Practitioner Family
DX: G47.8 Other sleep disorders (principal); R06.83 Snoring; E66.9 Obesity, unspecified; Z68.35 Body mass index [BMI] 35.0-35.9, adult; R41.89 Other symptoms and signs involving cognitive functions and awareness; R53.83 Other fatigue; E11.9 Type 2 diabetes mellitus without complications; I10 Essential (primary) hypertension; Z79.4 Long term (current) use of insulin; Z79.85 Long-term (current) use of injectable non-insulin antidiabetic drugs
CPT/HCPCS: 99203; G0463; 99212